=== PATIENT | female | born 1960 | race African-American/Black ===

== ENCOUNTER → 2021-05-11 | Outpatient (RCR) | payer MEDICARE, MEDICAID | END | disposition home or self-care (01) | LOC: WSPT | DX: Z86.73 Personal history of transient ischemic attack (TIA), and cerebral infarction without residual deficits (principal) ==

== ENCOUNTER 2021-05-13 13:07 | Outpatient (RCR) | payer MEDICARE, MEDICAID | END 2021-05-28 | disposition home or self-care (01) | LOC: WSPT | DX: Z86.73 Personal history of transient ischemic attack (TIA), and cerebral infarction without residual deficits (principal) ==

== ENCOUNTER 2021-06-24 12:45 | Outpatient (RCR) | payer MEDICARE, MEDICAID | END 2021-06-28 | disposition home or self-care (01) | LOC: WSPT | DX: I69.352 Hemiplegia and hemiparesis following cerebral infarction affecting left dominant side (principal) ==

== ENCOUNTER 2021-07-01 13:30 | Outpatient (RCR) | payer MEDICARE, MEDICAID | END 2021-07-26 | disposition home or self-care (01) | LOC: WSPT | DX: H81.10 Benign paroxysmal vertigo, unspecified ear (principal) ==